=== PATIENT | female | born 1985 | race African-American/Black ===

== ENCOUNTER 2017-01-24 00:41 | Emergency (ER) | payer BC ==
[~2017-01-24] VITALS: Ht 152.4 cm; Wt 98.4 kg
[2017-01-24 02:04] VITALS: BP 127/71
== END 2017-01-24 02:06 | disposition home or self-care (01) ==
LOC: ER 00:41
DX: T78.1XXA Other adverse food reactions, not elsewhere classified, initial encounter (principal); R22.1 Localized swelling, mass and lump, neck; Y93.89 Activity, other specified; X58.XXXA Exposure to other specified factors, initial encounter; Y92.89 Other specified places as the place of occurrence of the external cause; G35 Multiple sclerosis; Z98.890 Other specified postprocedural states; Z91.018 Allergy to other foods
CPT/HCPCS: 99283; Z7610